=== PATIENT | male | born 1945 | race Caucasian/White ===

== ENCOUNTER → 2018-06-08 | Outpatient (CLI) | payer MEDICARE | END | disposition home or self-care (01) | LOC: RAD 12:54 | PROVIDERS: ATTEND Nurse Practitioner Primary Care | DX: Z00.01 Encounter for general adult medical examination with abnormal findings (principal); Z13.6 Encounter for screening for cardiovascular disorders | CPT/HCPCS: 93005 ==

== ENCOUNTER → 2021-02-04 | Outpatient (CLI) | payer MEDICARE | END | disposition home or self-care (01) | LOC: CVU 15:49 | PROVIDERS: ATTEND Internal Medicine | DX: I08.3 Combined rheumatic disorders of mitral, aortic and tricuspid valves (principal); I45.10 Unspecified right bundle-branch block; R94.31 Abnormal electrocardiogram [ECG] [EKG]; Z85.46 Personal history of malignant neoplasm of prostate | CPT/HCPCS: 93306; 93356 ==

== ENCOUNTER 2021-02-20 10:38 | Emergency (ER) | payer MEDICARE ==
[~2021-02-20] VITALS: Ht 177.8 cm; Wt 80.0 kg
[2021-02-20 11:30] LABS: MEAN CORPUSCULAR HEMOGLOBIN 30.5 pg (27.5-34.5); MEAN PLATELET VOLUME 8.4 fL (7.4-10.4); PLATELET COUNT 217 x10^3/uL (130-400); RED BLOOD COUNT 4.74 x10^6/uL (4.38-5.82); RED CELL DISTRIBUTION WIDTH 13.9 % (9.4-14.8)
[2021-02-20 11:38] LABS: ALANINE AMINOTRANSFERASE 314 U/L (12-78); ALBUMIN 3.7 g/dL (3.4-5.0); CALCIUM 8.6 mg/dL (8.5-10.1); CREATININE 1.07 mg/dL (0.7-1.3)
--- NOTE | 2021-02-20 12:01 | NUR ---
PT INFORMED OF POC, NEED TO PLACE IV FOR CT. PT REQUESTS NO CT, DOES NOT WANT RADIATION. HX OF CA, MULTIPLE CTS TO ABDOMEN AND PELVIS. ERP NOTIFIED. PT PROVIDED URINAL FOR UA.
[2021-02-20 12:07] LABS: ANION GAP 8 mmol/L (5-15); CHLORIDE 109 mmol/L (98-107)
[2021-02-20 12:08] LABS: ALKALINE PHOSPHATASE 181 U/L (45-117); BILIRUBIN,TOTAL 1.1 mg/dL (0.2-1.0); TOTAL PROTEIN 7.3 g/dL (6.4-8.2)
[2021-02-20 12:12] LABS: MD YES
[2021-02-20 12:14] LABS: <PLATELET ESTIMATE> ADEQUATE; <PLT MORPHOLOGY> NORMAL PLT MORPH; <RBC MORPHOLOGY> NORMAL; BAND#(MANUAL) 0.89 x10^3/uL; BANDS%(MANUAL) 12 % (0-7); BASOS#(MANUAL) 0.07 x10^3/uL (0-0.1); BASOS% (MANUAL) 1 % (0-1); LYMPH#(MANUAL) 0.37 x10^3/uL (1-3.4); LYMPHS% (MANUAL) 5 % (22-44); MONOS#(MANUAL) 0.44 x10^3/uL (0.3-2.7); MONOS% (MANUAL) 6 % (2-9); SEG#(MANUAL) 5.62 x10^3/uL (1.8-6.8); SEGS% (MANUAL) 76 % (42-75)
--- NOTE | 2021-02-20 12:22 | NUR ---
URINE COLLECTED/SENT TO LAB. VSS/UPDATED IN COMPUTER. PT REFUSING CT, REQUESTING COVID TEST. CALL LIGHT WITHIN REACH.
[2021-02-20 12:30] LABS: MICROSCOPIC NOT IND
--- NOTE | 2021-02-20 13:33 | NUR ---
PT RESTING QUIETLY, AWAITING ADD ON LAB ORDER RESULTS.
--- NOTE | 2021-02-20 13:49 | NUR ---
ADD ON ORDER FOR ABD .
--- NOTE | 2021-02-20 14:14 | NUR ---
US AT BS.
--- NOTE | 2021-02-20 15:37 | NUR ---
ADD ON ORDER FOR HEP PANEL.
[2021-02-20] MEDS ORDERED: LIDOCAINE-MPF 1%, 2ML ONE (15:52)
[2021-02-20] MEDS ORDERED: CEFTRIAXONE 1,000 MG ONE (15:52)
[2021-02-20] MEDS ORDERED: CEFTRIAXONE 1,000 MG IM ONE (16:00)
[2021-02-20] MEDS ORDERED: CEFTRIAXONE 1,000 MG in DEXTROSE 5% 50 ML IVPB ONE (16:00)
[2021-02-20 16:16] VITALS: BP 112/61
== END 2021-02-20 16:18 | disposition home or self-care (01) ==
LOC: ED 14:02
DX: K80.20 Calculus of gallbladder without cholecystitis without obstruction (principal); K92.2 Gastrointestinal hemorrhage, unspecified; R11.2 Nausea with vomiting, unspecified; R19.7 Diarrhea, unspecified; R10.84 Generalized abdominal pain; K64.4 Residual hemorrhoidal skin tags; R94.5 Abnormal results of liver function studies; Z85.46 Personal history of malignant neoplasm of prostate
CPT/HCPCS: 36415; 76700; 80053; 80074; 81003; 83605; 83690; 84145; 85025; 86850; 86900; 87040; 96372; 99284; J0696

== ENCOUNTER 2021-03-24 12:53 | Outpatient (CLI) | payer MEDICARE ==
[2021-03-24] MEDS ORDERED: REGADENOSON 0.4 MG/5 ML SYRINGE ONE (13:25)
== END 2021-03-24 23:59 | disposition home or self-care (01) ==
LOC: CFH 12:53
PROVIDERS: ATTEND Internal Medicine
DX: I45.10 Unspecified right bundle-branch block (principal); R94.31 Abnormal electrocardiogram [ECG] [EKG]
CPT/HCPCS: 78452; 93017; A9502; J2785